=== PATIENT | female | born 1945 | race Caucasian/White ===

== ENCOUNTER 2017-04-07 07:15 | Day surgery (SDC) | payer MEDICARE, OTHER ==
[~2017-04-07 07:15] MED LIST: ALENDRONATE SOD70 M2 PO; AMITIZA24 MC1 PO; AMITRIPTYLINE H10 MG PO; ATORVASTATIN CA20 M1 PO; BABY ASPIRIN81 MG PO; BONIVA PO; BUPROPION PO; Biotin PO; CALCIUM CITRAT1 EA20 PO; CALCIUM CITRATE1 TA PO; COLACE100 M1 PO; DEPAKOTE500 MG PO; DULCOLAX10 MG PR; ELAVIL10 MG PO; FOSAMAX PO; LAMICTAL100 M2 PO; LEVOTHROID50 MCG PO; LEXAPRO10 M1 PO; LEXAPRO10 MG PO; LIPITOR PO; LIPITOR20 MG PO; LIPITOR40 MG PO; METHYLCOBALAMIN PO; MIRALAX17 G2 PO; NORCO 5-325 TA1 EACH PO; NORCO 5/325 TAB1 TAB PO; PROMETRIUM PO; PROMETRIUM100 MG PO; SYNTHROID25 MCG PO; SYNTHROID50 MC1 PO; TRAVATAN Z5 M1 EACH EYE; TYLENOL650 MG PO; VENLAFAXINE HCL75 M5 PO; VITAMIN D-32000 UNI3 PO; ZOFRAN8 M1 PO; [UNRECOGNIZED DRUG - OTHER] PO; citracal
[2017-04-07 08:26] LABS: ANION GAP 11 mmol/L (0-20); BLOOD UREA NITROGEN 6 mg/dl (6-24); CALCIUM 8.9 mg/dl (8.5-10.5); CARBON DIOXIDE-VENOUS 31 mmol/L (22-32); CHLORIDE 103 mmol/l (96-110); CREATININE 0.76 mg/dl (0.50-1.10); GLUCOSE 104 mg/dL (70-110); POTASSIUM 4.1 mmol/L (3.7-5.1); SODIUM 141 mmol/L (135-145); eGFR VALUE FOR BLACK >90 mL/Min
== END 2017-04-07 10:45 ==
LOC: ENDOS 07:15 → SHSB 07:21 → ENDOS 08:50
PROVIDERS: Anesthesiology
PROC: 0DJD8ZZ Inspection of Lower Intestinal Tract, Via Natural or Artificial Opening Endoscopic (ICD-10-PCS; principal; 2017-04-07)
DX: K64.8 Other hemorrhoids (principal); K59.00 Constipation, unspecified; E03.9 Hypothyroidism, unspecified; F41.9 Anxiety disorder, unspecified; F32.9 Major depressive disorder, single episode, unspecified; Z79.899 Other long term (current) drug therapy; Z98.890 Other specified postprocedural states